=== PATIENT | female | born 1945 | race Caucasian/White ===

== ENCOUNTER 2019-05-08 14:29 | Inpatient (IN) | payer MEDICARE ==
[~2019-05-08] VITALS: Ht 162.6 cm; Wt 66.7 kg
[2019-05-08] MEDS ORDERED: HYDR-4384 PO (17:29)
[2019-05-08] MEDS ORDERED: TRAZ-214 PO (17:29)
[2019-05-08] MEDS ORDERED: CITA40TA11 PO (17:29)
[2019-05-08] MEDS ORDERED: MAGNESIUM HYDROXIDE 30 ML UDC PO PRN (17:30)
[2019-05-08] MEDS ORDERED: ACETAMINOPHEN 325 MG TABLET PO PRN (17:30)
--- NOTE | 2019-05-08 18:34 | NUR ---
RN-CO: DR LEYVA GAVE HER ADMITTING ORDERS. I ASKED THE PATIENT IF SHE HAS A FAMILY OR A FRIEND TO BE NOTIFIED. PATIENT STATED, " I DON'T HAVE A FAMILY OR A FRIEND TO BE NOTIFIED."
[2019-05-08] MEDS ORDERED: HYDROCODONE/APAP 5/325MG 1 EACH TABLET PO PRN (19:00)
--- NOTE | 2019-05-08 19:00 | NUR ---
GPS LIP READING TEACHER NOTES: ADMITTED A 73YO FEMALE FROM [facility] ON 5150 HOLD FOR DANGER TO OTHERS AND GRAVE DISABILITY. PER HOLD THE PATIENT WAS MAKING THREATS TO NEIGHBOR BY STATING "I AM GOING TO GET YOU" "I AM GOING TO KILL YOUR CATS", PATIENT TOLD DEPUTY OFFICER, "I SHOULD GO GET A GUN" PATIENT IS UNDER THE CARE OF DR. LEYVA AND CHRISTIANO FOR PSYCH AND MEDICAL RESPECTIVELY. PATIENT WAS INITIALLY CAME TO THE UNIT DURING THE DAY SHIFT. UPON FACE TO FACE ASSESSMENT, PATIENT PRESENTS ALERT AND ORIENTED X3, ABLE TO WALK AND STATE HER NEEDS, PATIENT APPEARS UNKEMPT, DISHEVELED, EASILY ANGERED, EASILY AGITATED, DEMANDING, COMPLAINS TO THE STAFF RIGHT AWAY REGARDING A PATIENT FROM ANOTHER ROOM WHO CONSTANTLY TALKS NONSENSE STUFF. REALITY ORIENTATION DONE. UNIT ORIENTATION DONE. PATIENT MADE AWARE OF THE UNIT POLICIES, RULES, STAFFS AND DOCTORS IN CHARGE. SKIN AND BODY ASSESSMENT DONE, PATIENT HAS A BRUISE ON THE LEFT UPPER ARM,AND A SKIN DISCOLORATION ON THE LEFT HAND DORSAL AREA. PATIENT'S SACRAL AREA IS FREE FROM REDNESS OR ANY IRRITATION. NO SKIN AND FACE PHOTO DONE, THERE IS NO AVAILABLE PHOTO CARTRIDGE TO PRINT PICTURES. PATIENT ADVISED OF THE HOLD. DISCUSSED WITH PATIENT HER RIGHTS, GUIDE TO PRESCRIPTION HANDBOOK PROVIDED TOGETHER WITH SOH- CARE PACKET. Q15 MIN CHECKS INITIATED. CARE PLAN STARTED. MED RECON DONE BY DR. ALVARADO. WILL MONITOR PATIENT FOR MOOD, AND BEHAVIOR. WILL ENDORSE PATIENT TO DAY SHIFT NURSE. Addendum: 05/09/19 at 0149 by GLADYS VICTORIA PER DAY SHIFT NURSES' REPORT, PATIENT HAS NO FAMILY TO NOTIFY OF THIS ADMISSION, SAID STATEMENT WAS CONFIRMED BY PATIENT. STATES THAT, SHE LIVES BY HERSELF WITH HER TWO DOGS THAT WERE TAKEN INTO THE DOG POUND.
[2019-05-08 21:08] VITALS: BP 129/74
[2019-05-08] MEDS: TEMAZEPAM 7.5 MG CAPSULE PO PRN (21:46)
[2019-05-09] MEDS: MAG HYDROX/AL HYDROX/SIMETH 30 ML UDC PO PRN ×2 (05:15→20:57)
[2019-05-09 08:00] VITALS: BP 137/72
[2019-05-09 08:43] LABS: ALANINE AMINOTRANSFERASE 36 U/L (12-78); ALBUMIN 3.2 g/dL (3.4-5.0); ALKALINE PHOSPHATASE 113 U/L (46-116); ASPARTATE AMINOTRANSFERASE 67 U/L (15-37); BILIRUBIN,TOTAL 1.3 mg/dL (0.2-1.0); CALCIUM, SERUM 9.6 mg/dL (8.5-10.1); CARBON DIOXIDE 31 mmol/L (21-32); CHLORIDE 105 mmol/L (98-107); CREATININE 0.6 mg/dL (0.6-1.3); GLUCOSE 126 mg/dL (74-106); POTASSIUM 4.4 mmol/L (3.5-5.1); SODIUM SERUM 143 mmol/L (136-145); TOTAL PROTEIN, SERUM 6.7 g/dL (6.4-8.2); UREA NITROGEN, BLOOD 7 mg/dL (7-18)
[2019-05-09 08:54] LABS: CHOLESTEROL 213 mg/dL (<200); HDL CHOLESTEROL 44 mg/dL (40-60); LDL 143 mg/dL (0-99); TRIGLYCERIDES 193 mg/dL (30-150)
--- NOTE | 2019-05-09 10:06 | NUR ---
VERNELL NOTE: CORRECTION ON FLOW SHEET. PATIENT IS AMULATORY WITH MILD WEAKNESS Addendum: 05/09/19 at 1007 by CÉSAR ESTRELLA RN Amended: Links added. Addendum: 05/09/19 at 1008 by CÉSAR ESTRELLA RN Amended: Links added.
[2019-05-09] MEDS: THIAMINE HCL 100 MG TABLET PO SCH (12:43)
[2019-05-09] MEDS: FOLIC ACID 1 MG TABLET PO SCH (12:43)
[2019-05-09] MEDS: MULTIVIT W/MINERALS 1 TAB TABLET PO SCH (12:43)
[2019-05-09] MEDS: DOCUSATE SODIUM 100 MG CAPSULE PO SCH ×2 (12:43→17:02)
[2019-05-09] MEDS: ENSURE ENLIVE CHOC 237 ML CAN PO SCH ×2 (13:44→17:03)
--- NOTE | 2019-05-09 15:30 | NUR ---
GROUP NOTE: Pt was prompted to attend group therapy on 05/09/19 at 2:00pm, pt refused to attend stating she did not want to interact with others. Pt then joined group as group was ending and stated that she just wanted to go home. SW explained the importance of group milieu and how attending groups and activities was part of her treatment while on a psychiatric hold. Pt stated she wasn't aware and that from now on she would participate.
[2019-05-09 16:00] VITALS: BP 132/73
[2019-05-09] MEDS: busPIRone 5 MG TABLET PO SCH (17:01)
[2019-05-09] MEDS: SERTRALINE HCL 25 MG TABLET PO SCH (17:01)
[2019-05-09 20:25] VITALS: BP 140/73
[2019-05-09] MEDS: TEMAZEPAM 7.5 MG CAPSULE PO PRN (21:35)
[2019-05-10] MEDS: LORAZEPAM 0.5 MG TABLET PO PRN ×2 (01:55→23:25)
[2019-05-10 08:00] VITALS: BP 100/55
[2019-05-10] MEDS: DOCUSATE SODIUM 100 MG CAPSULE PO SCH ×3 (09:42→16:57)
[2019-05-10] MEDS: MULTIVIT W/MINERALS 1 TAB TABLET PO SCH (09:42)
[2019-05-10] MEDS: ENSURE ENLIVE CHOC 237 ML CAN PO SCH ×3 (09:42→16:59)
[2019-05-10] MEDS: busPIRone 5 MG TABLET PO SCH ×2 (09:43→16:57)
[2019-05-10] MEDS: THIAMINE HCL 100 MG TABLET PO SCH (09:43)
[2019-05-10] MEDS: FOLIC ACID 1 MG TABLET PO SCH (09:43)
--- NOTE | 2019-05-10 15:15 | NUR ---
Group Note: Pt attended group therapy on 05/10/19 at 2pm discussing the topic of their goals in areas of both their hospitalization and their personal life. S: Pt stated, I want to go back to my home and manage my life or else I will have to find another place to live. This has been a learning experience for me to manage my temper. O: Pt was present during the group session and was engaged. Pt appeared to be in a euthymic mood and presented with a calm affect. Pt maintained appropriate eye contact and had an appropriate tone of voice. A: Pt expressed that she understands that she can no longer manage her anger after everything that has been happening to her these past few years that have been difficult for her. She expressed that she is in therapy and that she may have to begin addressing her anger in therapy so that an event like this hospitalization does not occur again and so that she no longer loses control. Pt came to the understanding of what is considered manageable and appropriate behavior. P: Pt will continue milieu treatment and medication stabilization.
[2019-05-10 16:00] VITALS: BP 120/66
[2019-05-10] MEDS: ATORVASTATIN 10 MG TABLET PO SCH ×2 (16:57→21:29)
[2019-05-10] MEDS: SERTRALINE HCL 25 MG TABLET PO SCH (16:57)
[2019-05-10 17:41] LABS: APPEARANCE,URINE CLEAR (CLEAR); BILIRUBIN,URINE NEGATIVE (NEGATIVE); BLOOD, URINE NEGATIVE Ery/uL (NEGATIVE); COLOR,URINE YELLOW (YELLOW); KETONES,URINE NEGATIVE (NEGATIVE); LEUKOCYTE ESTERASE ,URINE TRACE (NEGATIVE); NITRITE, URINE NEGATIVE (NEGATIVE); PROTEIN,URINE NEGATIVE (NEGATIVE); UGLUCOSE NEGATIVE (NEGATIVE)
[2019-05-10 18:01] LABS: RBC,URINE 0-2 /HPF (0-2)
[2019-05-10 18:02] LABS: BACTERIA,URINE Rare /HPF (None Seen); SQUAMOUS EPITHELIAL CELL,UR Moderate /HPF (None Seen)
[2019-05-10 20:27] VITALS: BP 134/67
[2019-05-10] MEDS: DIVALPROEX SODIUM 125 MG CAP.SPRINK PO SCH (21:29)
[2019-05-10 22:30] VITALS: BP 122/77
[2019-05-11 08:00] VITALS: BP 127/76
[2019-05-11] MEDS: ENSURE ENLIVE CHOC 237 ML CAN PO SCH ×3 (08:05→16:47)
[2019-05-11] MEDS: DIVALPROEX SODIUM 125 MG CAP.SPRINK PO SCH ×2 (08:06→21:17)
[2019-05-11] MEDS: THIAMINE HCL 100 MG TABLET PO SCH (08:06)
[2019-05-11] MEDS: FOLIC ACID 1 MG TABLET PO SCH (08:06)
[2019-05-11] MEDS: MULTIVIT W/MINERALS 1 TAB TABLET PO SCH (08:06)
[2019-05-11] MEDS: busPIRone 5 MG TABLET PO SCH ×2 (08:06→16:46)
[2019-05-11] MEDS: DOCUSATE SODIUM 100 MG CAPSULE PO SCH ×3 (08:06→16:46)
--- NOTE | 2019-05-11 13:10 | NUR ---
ANIVAL faxed a referral to [facility] with attention to [place] to the fax number: [phone].
--- NOTE | 2019-05-11 13:11 | NUR ---
Helena ([phone]) from [facility] contacted the and stated that the pt was accepted to their facility.
--- NOTE | 2019-05-11 15:10 | NUR ---
Group Note: Pt attended group therapy on 05/11/19 at 2pm discussing patient rights. S: Pt stated, I came here and I was helped. I feel as if my rights were present and respected. I had a lot of time to refocus my life while I was here and I appreciate this experience. O: Pt was present during the group session and was engaged. Pt appeared to be in a euthymic mood and presented with a calm affect. Pt maintained appropriate eye contact and had an appropriate tone of voice. A: Pt expressed that she understands that this hospitalization was necessary for her to become stable on her medications and learn how to manage her anger. P: Pt will continue milieu treatment and medication stabilization.
--- NOTE | 2019-05-11 15:24 | NUR ---
Initial Discharge Plan: Pt currently resides in a condo by herself located at [address] [place] [address], [place] [address]; ([phone]). Per pt, she would like to return home. ANIVAL will work with the pt and the MD regarding appropriate discharge planning. SW will form a safe and proper discharge.
--- NOTE | 2019-05-11 15:24 | NUR ---
ANIVAL called Betzaida Guevara ([phone]) at [facility] and informed her that the pt was going to be discharged either tomorrow or Thursday. She stated that she would arrange transportation via bus and she recommended an outpatient service for the pt.
--- NOTE | 2019-05-11 15:27 | NUR ---
ANIVAL called the [facility] ([phone]) and scheduled an intake for the pt on ThursdayMay 17 at 10AM for post discharge services.
[2019-05-11 16:00] VITALS: BP 150/85
[2019-05-11] MEDS: SERTRALINE HCL 25 MG TABLET PO SCH (16:46)
[2019-05-11 20:00] VITALS: BP 157/75
[2019-05-11] MEDS: ATORVASTATIN 10 MG TABLET PO SCH (21:17)
[2019-05-11] MEDS: LORAZEPAM 0.5 MG TABLET PO PRN (23:51)
[2019-05-12] MEDS: TEMAZEPAM 7.5 MG CAPSULE PO PRN (01:05)
[2019-05-12 08:00] VITALS: BP 126/76
[2019-05-12] MEDS: ENSURE ENLIVE CHOC 237 ML CAN PO SCH ×2 (08:17→12:00)
--- NOTE | 2019-05-12 08:32 | NUR ---
DR. LEYVA GAVE AN ORDER TO D/C HOLD AND D/C HOME AND TO FOLLOW UP WITH PSYCH AND MEDICAL DOCTORS.
[2019-05-12] MEDS: DOCUSATE SODIUM 100 MG CAPSULE PO SCH (09:00)
[2019-05-12] MEDS: MULTIVIT W/MINERALS 1 TAB TABLET PO SCH (09:04)
[2019-05-12] MEDS: FOLIC ACID 1 MG TABLET PO SCH (09:04)
[2019-05-12] MEDS: THIAMINE HCL 100 MG TABLET PO SCH (09:04)
[2019-05-12] MEDS: busPIRone 5 MG TABLET PO SCH (09:04)
[2019-05-12] MEDS: DIVALPROEX SODIUM 125 MG CAP.SPRINK PO SCH (09:04)
--- NOTE | 2019-05-12 12:10 | NUR ---
NURSING DISCHARGE NOTE: PT WAS DISCHARGED TODAY AT 1210 [address] TO [address], [place] [address]. . PT HAS A BUS TICKET FOR 1:45PM AND WAS GIVEN A TAXI VOUCHER TO THE [facility]. PT LEFT THE UNIT AMBULATORY, ESCORTED BY 1 RN TO THE TAXI. PT IS A&OX2-3, CALM, COOPERATIVE, PLEASANT, MED COMPLIANT, DENIES SI/HI/AVH AT THE TIME OF DISCHARGE. NO S/S OF ANY DISTRESS NOTED. NO C/O PAIN OR ANY DISCOMFORT. DISCHARGE ORDER AND PRESCRIPTIONS WERE GIVEN BY DR. LEYVA. PT HAS BEEN MEDICALLY CLEARED FOR DISCHARGE BY DR. BOND AND PRESCRIPTIONS WERE GIVEN BY DR. BOND WELL. PT WAS COOPERATIVE WITH DISCHARGE PROCESS AND HAS SIGNED ALL DISCHARGE PAPERWORK. PT VERBALIZED UNDERSTANDING OF DISCHARGE INSTRUCTIONS AND MEDICATIONS. VS STABLE. PT REFUSED SKIN ASSESSMENT AND PICTURES TO BE TAKEN. PT REFUSED TO EAT HER LUNCH UPON DISCHARGE STATING "I'M NOT REALLY HUNGRY". ALL BELONGINGS WERE RETURNED TO PT WELL.
--- NOTE | 2019-05-12 15:29 | NUR ---
Discharge Note: Pt was discharged back to her home located at [address] [place] [address], [address], [place] [address]; ([phone]). Pt received a bus ticket for 1:45PM. Pt was given a taxi voucher to the [facility] and was discharged at 12PM. Upon discharge, the pt appeared to be in a euthymic mood and presented with a calm affect. Pt denied both suicidal and homicidal ideation as well as auditory and visual hallucinations. Pt will be under the care of [facility] psychiatric services located at [address] [place] [address], [address], [place] [address]; ([phone]); fax: ([phone]). Pt has an appointment on 05/17/19 at 10AM. Pt will also be under the care of fish housekeeper, Dr. Ravinder Taveras, located at [address] [place] [address], [place] [address]; .
== END 2019-05-12 12:10 | disposition home or self-care (01) | DRG 885 ==
LOC: GPS 17:08
PROVIDERS: ADMIT Psychiatry & Neurology Psychosomatic Medicine; ATTEND Internal Medicine
DX: F39 Unspecified mood [affective] disorder (principal); F32.3 Major depressive disorder, single episode, severe with psychotic features; E78.5 Hyperlipidemia, unspecified; F43.10 Post-traumatic stress disorder, unspecified; Z86.73 Personal history of transient ischemic attack (TIA), and cerebral infarction without residual deficits; Z87.891 Personal history of nicotine dependence; Z73.6 Limitation of activities due to disability; R74.0 Nonspecific elevation of levels of transaminase and lactic acid dehydrogenase [LDH]; F10.21 Alcohol dependence, in remission
CPT/HCPCS: 36415; 80053-TC; 80061-TC; 81000-TC